=== PATIENT | male | born 1995 | race Caucasian/White ===

== ENCOUNTER 2019-07-17 19:37 | Emergency (ER) | payer OTHER ==
[2019-07-17 19:43] VITALS: BP 127/70; PULSE 80; TEMP 98.7; BMI 32.5
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
== END 2019-07-17 21:10 | disposition home or self-care (01) ==
LOC: FER 19:37
DX: S63.91XA Sprain of unspecified part of right wrist and hand, initial encounter (principal); Y04.2XXA Assault by strike against or bumped into by another person, initial encounter; Y93.89 Activity, other specified; Y92.89 Other specified places as the place of occurrence of the external cause; F17.210 Nicotine dependence, cigarettes, uncomplicated
CPT/HCPCS: 73130-TC-RT-FY; 73140-TC-RT-FY; 99282-25

== ENCOUNTER 2020-01-17 02:45 | Emergency (ER) | payer OTHER ==
[2020-01-17 02:53] VITALS: BP 129/80; PULSE 90; TEMP 98.6; BMI 31.9
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
[2020-01-17] MEDS ORDERED: DIPHTH,PERTUSS(ACELL),TET 0.5 ML DISP.SYRIN IM ONE ×2 (03:00→03:02)
[2020-01-17] MEDS ORDERED: ACETAMINOPHEN 500 MG TABLET (FP) PO ONE (03:01)
[2020-01-17] MEDS ORDERED: ACETAMINOPHEN 500 MG TABLET (FP) ONE (03:07)
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
== END 2020-01-17 04:20 | disposition home or self-care (01) ==
LOC: FER 02:45
PROC: 3E0234Z Introduction of Serum, Toxoid and Vaccine into Muscle, Percutaneous Approach (ICD-10-PCS; principal; 2020-01-17)
DX: S50.811A Abrasion of right forearm, initial encounter (principal); V86.95XA Unspecified occupant of 3- or 4- wheeled all-terrain vehicle (ATV) injured in nontraffic accident, initial encounter
CPT/HCPCS: 70450-TC; 71046-TC-FY; 71120-TC-FY; 73090-TC-RT-FY; 73130-TC-RT-FY; 90715; 99284-25

== ENCOUNTER 2023-07-04 02:02 | Emergency (ER) | payer OTHER ==
[2023-07-04 02:07] VITALS: BP 119/72; PULSE 80; RESP 16; TEMP 98; BMI 30.4
== END 2023-07-04 02:18 | disposition home or self-care (01) ==
LOC: FER 02:02
DX: M25.561 Pain in right knee (principal)
CPT/HCPCS: 99283-25

== ENCOUNTER 2024-04-18 13:49 | Emergency (ER) | payer OTHER ==
[2024-04-18 14:00] VITALS: BP 127/77; PULSE 72; RESP 18; TEMP 98.6; BMI 28.8
== END 2024-04-18 16:05 | disposition home or self-care (01) ==
LOC: JER 13:49
DX: R20.2 Paresthesia of skin (principal)
CPT/HCPCS: 82962; 93005; 93010; 99284-25